=== PATIENT | female | born 2005 | race Caucasian/White ===

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

== ENCOUNTER → 2024-10-20 | Outpatient (CLI) | payer OTHER ==
[~2024-10-20] VITALS: Ht 170.2 cm; Wt 102.5 kg
[~2024-10-20] MED LIST changes: +NS 1,000 ML IV SCH; +PRILOSEC OTC20 MG PO; +SKYRIZI PE150 MG/1 M SQ; +SPRINTEC 35 MCG1 TAB PO
[2024-10-20 11:33] VITALS: BP 131/69
[2024-10-20 12:35] VITALS: BP 126/94
== END ==
LOC: AMSURD 10:37
DX: R55 Syncope and collapse (principal)
CPT/HCPCS: J7030